=== PATIENT | female | born 1950 ===

== ENCOUNTER 2020-01-01 13:27 | Outpatient (REF) | payer MEDICARE, BC, SELFPAY | END 2020-01-01 13:47 | LOC: NCHCN 13:27 | PROVIDERS: PCP Family Medicine; Visit Provider Nurse Practitioner Family | DX: N76.0 Acute vaginitis (principal) | CPT/HCPCS: 87077; 87086; 87186 ==

== ENCOUNTER 2025-09-16 09:46 | Outpatient (REF) | payer MEDICARE, SELFPAY ==
[2025-09-16 15:41] LABS: HCT 45.1 % (36.0-46.0); HGB 15.6 g/dL (11.2-15.7); MCH 30.6 pg (27.0-33.0); MCHC 34.6 % (32.0-36.0); MCV 88 fL (80-95); MPV 11.5 fL (8.0-11.0); Platelet Count 182 10^3/uL (130-400); RBC 5.10 10^6/uL (3.93-5.22); RDW 11.9 % (11.7-14.6); RDW-SD 38.6 fL; WBC 6.26 10^3/uL (4.4-10.8)
[2025-09-16 16:02] LABS: ALT 58 U/L (10-49); AST 47 U/L (<34); Albumin 4.2 g/dL (3.4-5.0); Alkaline Phosphatase 126 U/L (46-116); Anion Gap 8.3 mmol/L (3-11); BUN 13 mg/dL (9-23); Bilirubin, Total 1.20 mg/dL (0.2-1.2); CO2 25.7 mmol/L (20.0-31.0); Calcium 9.5 mg/dL (8.3-10.6); Chloride 103 mmol/L (98-107); Cholesterol 240 mg/dL (<200); Glucose 298 mg/dL (74-106); HDL Cholesterol 52 mg/dL (>40); Potassium 3.8 mmol/L (3.5-5.1); Sodium 137 mmol/L (136-145); Total Protein 7.5 g/dL (5.7-8.2)
[2025-09-16 19:06] LABS: Hemoglobin A1C 12.5 % (<5.7)
== END 2025-09-16 09:47 | disposition home or self-care (01) ==
LOC: NCHCN 09:46
PROVIDERS: PCP Family Medicine; Visit Provider Physician Assistant
DX: Z13.1 Encounter for screening for diabetes mellitus (principal); I10 Essential (primary) hypertension; E78.5 Hyperlipidemia, unspecified
CPT/HCPCS: 80053; 80061; 85027; 83036